=== PATIENT | male | born 2000 | race Caucasian/White ===

== ENCOUNTER → 2022-12-26 | Outpatient (CLI) | payer BC | LOC: LAB 14:34 | DX: J03.90 Acute tonsillitis, unspecified (principal) ==

== ENCOUNTER → 2022-12-28 | Outpatient (CLI) | payer BC ==
[2022-12-28 13:54] LABS: BASO # 0.03 K/mm3 (0.02-0.10); EOS # 0.16 K/mm3 (0.04-0.40); EOS % 1.9 % (0.0-4.0); HEMOGLOBIN 15.3 g/dL (13.5-18.0); LYMPH# 4.14 K/mm3 (1.50-4.00); MEAN CELL VOLUME 86 fl (78-100); MEAN CORPUSCULAR HEMOGLOBIN 30 pg (27-31); MEAN CORPUSCULAR HGB CONC 35 g/dL (33-37); MEAN PLATELET VOLUME 9.5 fl (7.4-10.4); MONO # 0.95 K/mm3 (0.20-0.80); NEU # 3.18 K/mm3 (1.40-6.50); PLATELET COUNT 260 K/mm3 (130-400); RED BLOOD COUNT 5.13 M/mm3 (4.20-5.60); RED CELL DISTRIBUTION WIDTH 12.6 % (11.5-14.5); WHITE BLOOD COUNT 8.5 K/mm3 (4.8-10.8)
== END ==
LOC: LAB 13:33
PROVIDERS: Family Medicine
DX: J02.9 Acute pharyngitis, unspecified (principal)